=== PATIENT | male | born 1995 | race African-American/Black ===

== ENCOUNTER 2018-02-05 09:52 | Emergency (ER) | payer OTHER | END 2018-02-05 11:12 | disposition home or self-care (01) | LOC: M ED 09:52 | DX: S60.121A Contusion of right index finger with damage to nail, initial encounter (principal); W23.0XXA Caught, crushed, jammed, or pinched between moving objects, initial encounter; Y92.098 Other place in other non-institutional residence as the place of occurrence of the external cause | CPT/HCPCS: 73140 ==

== ENCOUNTER 2019-10-02 11:39 | Emergency (ER) | payer OTHER ==
[~2019-10-02] VITALS: Ht 190.5 cm; Wt 82.7 kg
[~2019-10-02 11:39] MED LIST: IBUP-1022 PO
[2019-10-02] MEDS ORDERED: CYCLOBENZAPRINE 10 MG TAB PO ONE (12:30)
[2019-10-02] MEDS ORDERED: NAPROXEN 250 MG TAB PO ONE (12:30)
[2019-10-02] MEDS ORDERED: CYCL10TA PO ×2 (13:18→13:28)
[2019-10-02 13:26] VITALS: BP 130/74
== END 2019-10-02 13:28 | disposition home or self-care (01) ==
LOC: M ED 11:39
DX: Z04.1 Encounter for examination and observation following transport accident (principal); M54.6 Pain in thoracic spine; Z88.0 Allergy status to penicillin